=== PATIENT | female | born 1995 | race Two or more races ===

== ENCOUNTER → 2025-07-14 | Outpatient (CLI) | payer BC, SELFPAY ==
--- NOTE | 2025-07-14 13:54 | XR_ITS ---
Examination: PA lateral chest 2 views TECHNIQUE: Upright PA lateral chest 2 views Date and time: July 14, 2025 1414 hours INDICATIONS: Pectus excavatum surgery 6 months ago. FINDINGS: Orthopedic support structures for pectus deformity On the current lateral view there is no significant depression of the sternum Thoracic dextroscoliosis 18 degrees Normal heart size. Lungs are clear IMPRESSION: No active disease
== END | disposition home or self-care (01) ==
PROVIDERS: PCP Family Medicine; Referring Provider Thoracic Surgery (Cardiothoracic Vascular Surgery); Visit Provider Thoracic Surgery (Cardiothoracic Vascular Surgery)
DX: Q67.6 Pectus excavatum (principal)
CPT/HCPCS: 71046